=== PATIENT | female | born 1945 | race Caucasian/White ===

== ENCOUNTER 2018-12-05 08:30 | Inpatient (IN) | payer MEDICARE, OTHER ==
[~2018-12-05] VITALS: Ht 144.8 cm; Wt 86.1 kg
[2019-01-23] VITALS (25 sets, daily range): BP systolic 119–177; BP diastolic 65–87; PULSE 82–97; RESP 15–24; Ht 144.8 cm; Wt 86.1 kg
[2019-01-23] MEDS ORDERED: DEXAMETHASONE 4 MG/ML 1 ML INJ IV ONE (08:00)
[2019-01-23] MEDS ORDERED: ACETAMINOPHEN 500 MG TAB PO ONE (08:00)
[2019-01-23] MEDS ORDERED: TRANEXAMIC ACID 1GM/100ML(PMX) 100 ML PRE-OP X1 IVPB ONE (08:00)
[2019-01-23] MEDS ORDERED: TRANEXAMIC ACID 1GM/100ML(PMX) 100 ML INTRA-OP X1 IVPB ONE (08:00)
[2019-01-23] MEDS ORDERED: CEFAZOLIN 2 GM/50 ML (PMX) 50 ML IVPB ONE (08:00)
[2019-01-23] MEDS ORDERED: LACTATED RINGER'S 1,000 ML IV SCH (08:00)
[2019-01-23] MEDS ORDERED: SOD CHLORIDE 0.9% 1,000 ML IV SCH (11:00)
[2019-01-23] MEDS ORDERED: DICL100G37 TOP (11:23)
[2019-01-23] MEDS ORDERED: CALC60OI3 TOP (11:23)
[2019-01-23] MEDS ORDERED: OXYB5TAB22 PO ×2 (11:23→11:32)
[2019-01-23] MEDS ORDERED: FLUT9.9S NASAL (11:23)
[2019-01-23] MEDS ORDERED: ASPI-903 PO (11:23)
[2019-01-23] MEDS ORDERED: MELO7.5T39 PO (11:23)
[2019-01-23] MEDS ORDERED: BUME0.5T PO (11:23)
[2019-01-23] MEDS ORDERED: PREG50CA PO (11:32)
[2019-01-23] MEDS ORDERED: GABA300C16 PO (11:32)
--- NOTE | 2019-01-23 11:49 | HPN ---
Date/Time of Note Date/Time of Note DATE: 01/23/19 TIME: 11:49 Interval H&P Admission Note Pt. seen H&P reviewed: No system changes JESSY SIDDIQI Jan 23, 2019 11:49
[2019-01-23] MEDS ORDERED: TRIMETHOBENZAMIDE 100 MG/ML VIAL IM PRN (12:00)
[2019-01-23] MEDS ORDERED: DIPHENHYDRAMINE 50 MG INJ IV PRN (12:00)
[2019-01-23] MEDS ORDERED: IPRATROPIUM (NEB) 0.5 MG/2.5 ML AMP HHN PRN (12:00)
[2019-01-23] MEDS ORDERED: MIDAZOLAM 1 MG/ML 2 ML INJ IV PRN (12:00)
[2019-01-23] MEDS ORDERED: MEPERIDINE 25 MG INJ IV PRN (12:00)
[2019-01-23] MEDS ORDERED: EPHEDrine 25 MG/5 ML SYG IV PRN (12:00)
[2019-01-23] MEDS ORDERED: LABETALOL HCL 20MG INJ IV PRN (12:00)
[2019-01-23] MEDS ORDERED: ALBUTEROL 0.083% (NEB) 2.5 MG/3 ML AMP HHN PRN (12:00)
[2019-01-23] MEDS ORDERED: HYDROmorphONE 1 MG/5 ML IV SYRINGE IV PRN ×2 (12:00)
[2019-01-23] MEDS ORDERED: FENTAnyl 50 MCG/ML VIAL IV PRN ×2 (12:00)
[2019-01-23] MEDS ORDERED: hydrALAzine 20 MG INJ IV PRN ×2 (12:00→18:30)
[2019-01-23] MEDS ORDERED: OXYCODONE/ACETAMINOPHEN (5/325) TAB PO PRN ×2 (12:00)
[2019-01-23] MEDS ORDERED: ONDANSETRON 4 MG INJ IV PRN (12:00)
--- NOTE | 2019-01-23 12:00 | PREAC ---
Date/Time of Note Date/Time of Note DATE: 01/23/19 TIME: 11:58 Anesthesia Eval and Record Evaluation Time Pre-Procedure Interview DATE: 01/23/19 TIME: 11:58 Age 74 Sex female NPO: 8 hrs Preoperative diagnosis RIGHT SHOULDER OA Planned procedure RIGHT TSA Past Medical History Past Medical History: Includes Cardio: HTN, Dyslipidemia Endo: Diabetes Pulm: COPD Musculoskeletal: Rheumatoid arthritis GI: Morbid obesity Surgery & Anesthesia Issues No known issue Meds Anticoagulation: No Beta Lu within 24 hr: No Reason Beta Lu not given: Pt. not on B-Lu Reported Medications Pregabalin* (Lyrica*) 50 Mg Capsule, 50 MG PO TID, CAP 01/23/19 Gabapentin* (Gabapentin*) 300 Mg Capsule, 300 MG PO TID, #90 CAP 01/23/19 Oxybutynin Chloride* (Ditropan* XL) 5 Mg Tabsr, 5 MG PO DAILY, TAB.SA 01/23/19 Meloxicam (Mobic) 7.5 Mg Tablet, 7.5 MG PO DAILY, #30 TAB 01/23/19 Bumetanide* (Bumetanide*) 0.5 Mg Tablet, 0.5 MG PO DAILY, TAB 01/23/19 Oxybutynin Chloride* (Ditropan* XL) 5 Mg Tabsr, 5 MG PO DAILY, TAB.SA 01/23/19 Fluticasone Propionate (Flonase Allergy Relief) 9.9 Ml [place].susp, 1 SPRAY NASAL BID, #1 BOTTLE TO EACH NOSTRIL 01/23/19 Diclofenac Sodium* (Voltaren* Gel) 1% -100 Gm Gel, 2 GM TOP QID, #1 TUB 01/23/19 Calcipotriene* (Calcipotriene*) 0.005%-60 Gm Oint...g., 1 APPLIC TOP BID, TUB 01/23/19 Aspirin* (Aspirin* Chew) 81 Mg Tab.chew, 81 MG PO DAILY, TAB.CHEW 01/23/19 Current Medications Lactated Ringer's 1,000 ml @ 125 mls/hr Q8H IV ; Start 01/23/19 at 08:00; Stop 01/23/19 at 15:59 Sodium Chloride 1,000 ml @ 25 mls/hr Q24H IV Last administered on 01/23/19at 10:56; Admin Dose 25 MLS/HR; Start 01/23/19 at 11:00 Meds reviewed: Yes Allergies Uncoded Allergies: dye (Allergy, Severe, 01/23/19) Allergies Reviewed: Yes Labs/Studies Labs Reviewed: Reviewed by anesthesiologist test: N/A Pre-procedure Exam Last vitals Vital Signs Date Temp Pulse Resp B/P (MAP) Pulse Ox O2 O2 Flow FiO2 Time Delivery Rate 01/23/19 98.4 85 16 163/87 96 Room Air 11:02 (112) Airway: Adequate mouth opening, Adequate thyromental dist Mallampati: Mallampati II Teeth: Normal Lung: Normal Heart: Normal ASA Physical Status ASA physical status: 3 Emergency: None Planned Anesthetic General/MAC: TORY Nerve block: Brachial plexus (right) Planned Pain Management Single shot nerve block, Parenteral pain med Pre-operative Attestations Prior to commencing anesthesia and surgery, the patient was re-evaluated, there was verification of: *The patient's identity *The results of appropriate recent lab work and preoperative vital signs *The above evaluation not changing prior to induction *Anesthetic plan, risk benefits, alternative and complications discussed with patient/family; questions answered; patient/family understands, accepts and wishes to proceed. Cm Bains M.D. Jan 23, 2019 12:00
[2019-01-23] MEDS ORDERED: ROPIVACAINE 0.5 % 30 ML VIAL ONE (12:10)
[2019-01-23] MEDS ORDERED: DEXAMETHASONE 4 MG/ML 5 ML INJ ONE (12:10)
[2019-01-23] MEDS ORDERED: PROPOFOL 20 ML ONE (12:10)
[2019-01-23] MEDS ORDERED: NEOSTIGMINE 3 MG/3 ML SYRINGE ONE (12:10)
[2019-01-23] MEDS ORDERED: ONDANSETRON 4 MG INJ ONE (12:10)
[2019-01-23] MEDS ORDERED: ROCURONIUM 50 MG INJ ONE (12:10)
[2019-01-23] MEDS ORDERED: GLYCOPYRROLATE 0.4 MG INJ ONE (12:10)
[2019-01-23] MEDS ORDERED: SUGAMMADEX SODIUM 200 MG/2 ML VIAL IV ONE (12:10)
[2019-01-23] MEDS ORDERED: FENTAnyl 50 MCG/ML VIAL ONE ×2 (12:10)
[2019-01-23] MEDS ORDERED: MIDAZOLAM 1 MG/ML 2 ML INJ ONE (12:10)
[2019-01-23] MEDS ORDERED: CEFAZOLIN 1 GM INJ ONE (12:10)
[2019-01-23] MEDS ORDERED: TRANEXAMIC ACID 1 GM/100 ML (PMX) ONE (12:10)
[2019-01-23] MEDS ORDERED: ACETAMINOPHEN 1000MG/100ML IV 100 ML IVPB ONE (12:30)
[2019-01-23] MEDS ORDERED: BACITRACIN 50000 UNITS INJ ONE (12:57)
[2019-01-23] MEDS ORDERED: POLYMYXIN B 500000 UNIT INJ ONE (12:58)
[2019-01-23] MEDS ORDERED: GELATIN SIZE 100 SPONGE ONE (14:44)
[2019-01-23] MEDS ORDERED: THROMBIN 5000 UNIT VIAL ONE (14:45)
--- NOTE | 2019-01-23 15:49 | SIPON ---
Date/Time of Note Date/Time of Note DATE: 01/23/19 TIME: 15:48 Operative Report Preoperative Diagnosis right shoulder DJD Postoperative Diagnosis same Operation/Procedure Performed Right TSA Surgeon see signature line speech correction assistant Heather RILEY Anesthesia: general Estimated blood loss: 250 - 300 ml's Transfusion Required none Specimen bone Grafts/Implants DePuy shoulder 8 stem, 40 glenoid, 40 head Complications none JESSY SIDDIQI Jan 23, 2019 15:49
[2019-01-23] MEDS ORDERED: MAGNESIUM HYDROXIDE 30ML CUP PO PRN (16:00)
--- NOTE | 2019-01-23 16:19 | HP ---
Date/Time of Note Date/Time of Note DATE: 01/23/19 TIME: 16:18 Assessment/Plan VTE Prophylaxis SCD applied (from Nsg): Yes Pharmacological prophylaxis: NA/contraindicated Pharm contraindication: surgical contra Lines/Catheters IV Catheter Type (from Nrsg): Peripheral IV Assessment/Plan Assessment/Plan -Right shoulder degenerative joint disease, status post right total shoulder replacement by Dr. Castro. -Hypertension -Hyperlipidemia -Diabetes -COPD -Osteoarthritis -Psoriasis Further recommendations based on clinical course. Plan of care discussed with Dr. Teague. Results 24hrs Laboratory Tests Test 01/23/19 10:36 Bedside Glucose 82 HPI/ROS Admit Date/Time Admit Date/Time Jan 23, 2019 at 09:24 Hx of Present Illness The patient is 74-year-old female with history of hypertension, hyperlipidemia, COPD, diabetes mellitus type 2, psoriasis. Patient was evaluated by Dr. Castro for right shoulder degenerative joint disease. Patient was brought to the hospital and underwent right total shoulder replacement. Patient's complaints of the left upper extremity swelling and numbness. Patient denies any nausea and vomiting. Patient postoperative pale is well controlled. Patient will be admitted for further evaluation and management. ROS 12 point review of system is negative except for what mentioned in HPI PMH/Family/Social Past Medical History Medical History: diabetes, high cholesterol, hypertension, other (COPD, psoriasis, osteoarthritis) Medications Current Medications Sodium Chloride 1,000 ml @ 25 mls/hr Q24H IV Last administered on 01/23/19at 10:56; Admin Dose 25 MLS/HR; Start 01/23/19 at 11:00 Hydromorphone HCl (Dilaudid) 0.2 mg PACU PRN IV MILD PAIN 1-3; Start 01/23/19 at 12:00; Stop 01/23/19 at 18:30 Hydromorphone HCl (Dilaudid) 0.4 mg PACU PRN IV MOD PAIN 4-6; Start 01/23/19 at 12:00; Stop 01/23/19 at 18:30 Hydromorphone HCl (Dilaudid) 0.6 mg PACU PRN IV SEVERE PAIN 7-10; Start 01/23/19 at 12:00; Stop 01/23/19 at 18:30 Fentanyl (Sublimaze) 25 mcg PACU ORDER PRN IV MILD PAIN 1-3; Start 01/23/19 at 12:00; Stop 01/23/19 at 18:30 Fentanyl (Sublimaze) 50 mcg PACU ORDER PRN IV MOD PAIN 4-6; Start 01/23/19 at 12:00; Stop 01/23/19 at 18:30 Fentanyl (Sublimaze) 75 mcg PACU ORDER PRN IV SEVERE PAIN 7-10; Start 01/23/19 at 12:00; Stop 01/23/19 at 18:30 Oxycodone/ Acetaminophen (Percocet (5/ 325)) 1 tab PACU ORDER PRN PO .PAIN 1-5; Start 01/23/19 at 12:00; Stop 01/23/19 at 18:30 Oxycodone/ Acetaminophen (Percocet (5/ 325)) 2 tab PACU ORDER PRN PO .PAIN 6-10; Start 01/23/19 at 12:00; Stop 01/23/19 at 18:30 Ondansetron HCl (Zofran Inj) 4 mg PACU ORDER PRN IV NAUSEA/VOMITING; Start 01/23/19 at 12:00; Stop 01/23/19 at 18:30 Trimethobenzamide HCl (Tigan) 200 mg PACU ORDER PRN IM NAUSEA/VOMITING; Start 01/23/19 at 12:00; Stop 01/23/19 at 18:30 Labetalol HCl (Labetalol) 5 mg PACU ORDER PRN IV HIGH BLOOD PRESSURE; Start 01/23/19 at 12:00; Stop 01/23/19 at 18:30 Hydralazine HCl (Apresoline) 5 mg PACU ORDER PRN IV HIGH BLOOD PRESSURE; Start 01/23/19 at 12:00; Stop 01/23/19 at 18:30 Ephedrine Sulfate 5 mg PACU ORDER PRN IV BLOOD PRESSURE SUPPORT; Start 01/23/19 at 12:00; Stop 01/23/19 at 18:30 Albuterol (Proventil 0.083% (Neb)) 2.5 mg PACU ORDER PRN HHN .WHEEZING; Start 01/23/19 at 12:00; Stop 01/23/19 at 18:30 Ipratropium Pearl (Atrovent 0.02% (Neb)) 0.5 mg PACU ORDER PRN HHN .WHEEZING; Start 01/23/19 at 12:00; Stop 01/23/19 at 18:30 Meperidine HCl (Demerol) 25 mg PACU ORDER PRN IV .RIGORS; Start 01/23/19 at 12:00; Stop 01/23/19 at 18:30 Diphenhydramine HCl (Benadryl) 25 mg PACU ORDER PRN IV .PRURITUS; Start 01/23/19 at 12:00; Stop 01/23/19 at 18:30 Midazolam HCl (Versed) 0.5 mg PACU ORDER PRN IV .ANXIETY; Start 01/23/19 at 12:00; Stop 01/23/19 at 18:30 Cefazolin Sodium 50 ml @ 100 mls/hr Q8H IVPB ; Start 01/23/19 at 16:00; Stop 01/24/19 at 08:29 Magnesium Hydroxide (Milk Of Mag) 30 ml BID PRN PO CONSTIPATION; Start 01/23/19 at 16:00 Lactated Ringer's 1,000 ml @ 100 mls/hr Q10H IV ; Start 01/23/19 at 15:39 Aspirin (Aspirin) 81 mg DAILY PO ; Start 01/24/19 at 09:00 Gabapentin (Neurontin) 100 mg TID NGT ; Start 01/23/19 at 21:00 Oxycodone HCl (Roxicodone) 5 mg Q4H PRN PO MODERATE PAIN LEVEL 4-6; Start 01/23/19 at 16:00 Oxycodone HCl (Roxicodone) 10 mg Q4H PRN PO MODERATE PAIN LEVEL 4-6; Start 01/23/19 at 16:00 Uncoded Allergies: dye (Allergy, Severe, 01/23/19) Past Surgical History Past Surgical Hx: other (Status post hysterectomy more than 30 years ago, status post bilateral knee replacement) Social History Alcohol Use: none Smoking Status: Current every day smoker (Patient smokes hookah) Drug Use: none Exam/Review of Systems Vital Signs Vitals Vital Signs Date Temp Pulse Resp B/P (MAP) Pulse Ox O2 O2 Flow FiO2 Time Delivery Rate 01/23/19 98.4 85 16 163/87 96 Room Air 11:02 (112) Intake and Output 01/22/19 01/22/19 01/23/19 1515:00 23:00 07:00 IntakeIntake Total 0 ml BalanceBalance 0 ml Exam Constitutional: alert, oriented Head: normocephalic Neck: supple Respiratory: clear to auscultation Cardiovascular: regular rate and rhythm Gastrointestinal: soft, non-tender Musculoskeletal: nl extremities to inspection Extremities: normal pulses, edema (Bilateral upper extremities) Neurological: nl mental status DONOVAN FERNANDO Jan 23, 2019 16:19
--- NOTE | 2019-01-23 16:19 | PAC ---
Date/Time of Note Date/Time of Note DATE: 01/23/19 TIME: 16:18 Post-Anesthesia Notes Post-Anesthesia Note Last documented vital signs Vital Signs Date Temp Pulse Resp B/P (MAP) Pulse Ox O2 O2 Flow FiO2 Time Delivery Rate 01/23/19 98.4 85 16 163/87 96 Room Air 11:02 (112) Activity: WNL Respiratory function: WNL Cardiovascular function: WNL Mental status: Baseline Pain reasonably controlled: Yes Hydration appropriate: Yes Nausea/Vomiting absent: Yes Cm Bains M.D. Jan 23, 2019 16:19
[2019-01-23] MEDS: LACTATED RINGER'S 1,000 ML IV SCH ×2 (16:49→23:32)
[2019-01-23] MEDS: CEFAZOLIN 1 GM/50 ML (PMX) 50 ML IVPB SCH ×2 (16:52→23:32)
[2019-01-23] MEDS: FENTAnyl 50 MCG/ML VIAL IV PRN ×2 (16:54→17:11)
[2019-01-23] MEDS: HYDROmorphONE 1 MG/5 ML IV SYRINGE IV PRN ×2 (16:55→17:10)
[2019-01-23] MEDS: oxyCODONE 5 MG TAB PO PRN ×2 (18:42→22:44)
[2019-01-23] MEDS ORDERED: GLUCOSE GEL 15 GRAM TUBE BUCCAL PRN (19:30)
[2019-01-23] MEDS ORDERED: GLUCOSE GEL 15 GRAM TUBE PO PRN ×2 (19:30)
[2019-01-23] MEDS ORDERED: GLUCAGON 1 MG INJ IM PRN (19:30)
[2019-01-23] MEDS ORDERED: DEXTROSE 50% 50 ML SYRINGE IV PRN ×2 (19:30)
[2019-01-23] MEDS: GABAPENTIN 100 MG CAP NGT SCH (20:14)
[2019-01-23] MEDS: GABAPENTIN 300 MG CAP PO SCH (20:35)
[2019-01-23] MEDS: BUMETANIDE 0.5 MG TAB PO SCH (20:35)
[2019-01-23] MEDS: PREGABALIN 50 MG CAP PO SCH (20:35)
[2019-01-23] MEDS: FLUTICASONE 0.05% 16 GM NAS SPRAY NASAL SCH (20:52)
[2019-01-23] MEDS: INSULIN ASPART [NOVOLOG] 3 ML PEN SC SCH (20:55)
[2019-01-24] VITALS: BP 141/65; PULSE 95; RESP 20
[2019-01-24] MEDS: ACCU-CHEK XX SCH (02:50)
[2019-01-24] MEDS: oxyCODONE 5 MG TAB PO PRN ×3 (06:59→20:08)
[2019-01-24] MEDS ORDERED: AL HYDROX/MG HYDROX/SIMETH 30 ML CUP PO PRN (07:30)
[2019-01-24] MEDS ORDERED: PANTOPRAZOLE (EC) 40 MG TAB PO ONE (07:30)
[2019-01-24 07:33] VITALS: BP 139/65; PULSE 88; RESP 20
[2019-01-24] MEDS: INSULIN ASPART [NOVOLOG] 3 ML PEN SC SCH ×4 (08:48→20:23)
[2019-01-24] MEDS: FLUTICASONE 0.05% 16 GM NAS SPRAY NASAL SCH ×2 (08:50→21:00)
--- NOTE | 2019-01-24 08:50 | PN ---
Date/Time of Note Date/Time of Note DATE: 01/24/19 TIME: 08:49 Assessment/Plan VTE Prophylaxis Risk score (from Nsg)>0 risk: 8 SCD applied (from Nsg): Yes Lines/Catheters IV Catheter Type (from Nrsg): Peripheral IV Urinary Cath still in place: No Assessment/Plan Assessment/Plan -Right shoulder degenerative joint disease, status post right total shoulder replacement by Dr. Castro. -Hypertension -Hyperlipidemia -Diabetes -COPD -Osteoarthritis -Psoriasis Further recommendations based on clinical course. Plan of care discussed with Dr. Teague. Result Diagram: 01/24/199 01/24/19 0426 Results 24hrs Laboratory Tests Test 01/23/19 10:36 01/23/19 16:17 01/23/19 20:02 01/23/19 20:53 Bedside Glucose 82 127 210 240 H Test 01/24/19 01:41 01/24/19 04:26 01/24/19 04:29 01/24/19 08:16 Bedside Glucose 240 H Sodium Level 140 Potassium Level 4.3 Chloride Level 105 Carbon Dioxide 27 Level Anion Gap 8 Blood Urea 26 H Nitrogen Creatinine 0.65 Est Glomerular Filtrat Rate mL/min Glucose Level 205 Calcium Level 8.3 L Hemoglobin 10.6 L Hematocrit 32.1 L Lab Scanned Report REFERENCE LAB Test 01/24/19 08:40 Bedside Glucose 187 Exam/Review of Systems Exam Vitals Vital Signs Date Temp Pulse Resp B/P (MAP) Pulse Ox O2 O2 Flow FiO2 Time Delivery Rate 01/24/19 98.7 88 20 139/65 95 Nasal 3.0 07:33 (89) Cannula Intake and Output 01/23/19 01/23/19 01/24/19 1515:00 23:00 07:00 IntakeIntake Total 200 ml 1600 ml 1500 ml OutputOutput Total 50 ml 200 ml BalanceBalance 200 ml 1550 ml 1300 ml Results Results 24hrs Laboratory Tests Test 01/23/19 10:36 01/23/19 16:17 01/23/19 20:02 01/23/19 20:53 Bedside Glucose 82 127 210 240 H Test 01/24/19 01:41 01/24/19 04:26 01/24/19 04:29 01/24/19 08:16 Bedside Glucose 240 H Sodium Level 140 Potassium Level 4.3 Chloride Level 105 Carbon Dioxide 27 Level Anion Gap 8 Blood Urea 26 H Nitrogen Creatinine 0.65 Est Glomerular Filtrat Rate mL/min Glucose Level 205 Calcium Level 8.3 L Hemoglobin 10.6 L Hematocrit 32.1 L Lab Scanned Report REFERENCE LAB Test 01/24/19 08:40 Bedside Glucose 187 Medications Medication Current Medications Sodium Chloride 1,000 ml @ 25 mls/hr Q24H IV Last administered on 01/23/19at 10:56; Admin Dose 25 MLS/HR; Start 01/23/19 at 11:00 Magnesium Hydroxide (Milk Of Mag) 30 ml BID PRN PO CONSTIPATION; Start 01/23/19 at 16:00 Lactated Ringer's 1,000 ml @ 100 mls/hr Q10H IV Last administered on 01/23/19at 23:32; Admin Dose 100 MLS/HR; Start 01/23/19 at 15:39 Aspirin (Aspirin) 81 mg DAILY PO ; Start 01/24/19 at 09:00 Gabapentin (Neurontin) 100 mg TID NGT ; Start 01/23/19 at 21:00 Oxycodone HCl (Roxicodone) 5 mg Q4H PRN PO MODERATE PAIN LEVEL 4-6 Last administered on 01/23/19at 18:42; Admin Dose 5 MG; Start 01/23/19 at 16:00 Oxycodone HCl (Roxicodone) 10 mg Q4H PRN PO MODERATE PAIN LEVEL 4-6 Last administered on 01/24/19at 06:59; Admin Dose 10 MG; Start 01/23/19 at 16:00 Bumetanide (Bumex) 0.5 mg DAILY PO Last administered on 01/23/19at 20:35; Admin Dose 0.5 MG; Start 01/23/19 at 18:00 Fluticasone Propionate (Flonase 0.05% Nasal) 1 spray BID NASAL ; Start 01/23/19 at 21:00 Gabapentin (Neurontin) 300 mg TID PO Last administered on 01/23/19at 20:35; Admin Dose 300 MG; Start 01/23/19 at 21:00 Meloxicam (Mobic) 7.5 mg DAILY PO ; Start 01/24/19 at 09:00 Oxybutynin Chloride (Ditropan Xl) 5 mg DAILY PO ; Start 01/24/19 at 09:00 Pregabalin (Lyrica) 50 mg TID PO Last administered on 01/23/19at 20:35; Admin Dose 50 MG; Start 01/23/19 at 21:00 Hydralazine HCl (Apresoline) 10 mg Q6H PRN IV SBP>170 Last administered on 01/23/19at 19:59; Admin Dose 10 MG; Start 01/23/19 at 18:30 Diagnostic Test (Pha) (Accu-Chek) 1 ea 02 XX Last administered on 01/24/19at 02:50; Admin Dose 1 EA; Start 01/24/19 at 02:00 Insulin Aspart (Novolog Insulin Pen) NOVOLOG *MILD* ALGORITHM WITH MEALS BEDTIME SC Last administered on 01/23/19at 20:55; Admin Dose 2 UNIT; Start 01/23/19 at 21:00 Miscellaneous Information 1 ea NOTE XX ; Start 01/23/19 at 19:30 Glucose (Glutose) 15 gm Q15M PRN PO DECREASED GLUCOSE; Start 01/23/19 at 19:30 Glucose (Glutose) 22.5 gm Q15M PRN PO DECREASED GLUCOSE; Start 01/23/19 at 19:30 Dextrose (D50w Syringe) 25 ml Q15M PRN IV DECREASED GLUCOSE; Start 01/23/19 at 19:30 Dextrose (D50w Syringe) 50 ml Q15M PRN IV DECREASED GLUCOSE; Start 01/23/19 at 19:30 Glucagon (Glucagen) 1 mg Q15M PRN IM DECREASED GLUCOSE; Start 01/23/19 at 19:30 Glucose (Glutose) 15 gm Q15M PRN BUCCAL DECREASED GLUCOSE; Start 01/23/19 at 19:30 Al Hydrox/Mg Hydrox/Simethicone (Mag-Al Plus) 30 ml Q6H PRN PO INDIGESTION; Start 01/24/19 at 07:30 WILLIAMS YOUNG Jan 24, 2019 08:50
[2019-01-24] MEDS: CEFAZOLIN 1 GM/50 ML (PMX) 50 ML IVPB SCH (08:51)
[2019-01-24] MEDS: OXYBUTYNIN (XL) 5 MG TAB PO SCH (08:51)
[2019-01-24] MEDS: PREGABALIN 50 MG CAP PO SCH ×3 (08:51→20:08)
[2019-01-24] MEDS: MELOXICAM 7.5 MG TAB PO SCH (08:51)
[2019-01-24] MEDS: GABAPENTIN 300 MG CAP PO SCH ×3 (08:52→20:07)
[2019-01-24] MEDS: ASPIRIN 81 MG TAB PO SCH (08:52)
[2019-01-24] MEDS: GABAPENTIN 100 MG CAP NGT SCH ×3 (08:53→21:00)
[2019-01-24] MEDS: BUMETANIDE 0.5 MG TAB PO SCH (08:56)
[2019-01-24] MEDS ORDERED: ASPIRIN 81 MG TAB PO SCH (09:00)
[2019-01-24] MEDS ORDERED: LANT3I SC (12:07)
[2019-01-24] MEDS ORDERED: MTF1000T PO (12:07)
[2019-01-24 15:34] VITALS: BP 132/64; PULSE 84; RESP 18
[2019-01-24 19:20] VITALS: BP 136/72; PULSE 89; RESP 20
[2019-01-24] MEDS: INSULIN GLARGINE [LANTus] (100 UNITS/ML) SYG SC SCH (20:21)
[2019-01-25] MEDS: ACCU-CHEK XX SCH (02:00)
[2019-01-25] MEDS: oxyCODONE 5 MG TAB PO PRN ×2 (02:27→06:44)
[2019-01-25 02:50] VITALS: BP 136/60; PULSE 97; RESP 20
[2019-01-25 07:10] VITALS: BP 136/92; PULSE 105; RESP 18
[2019-01-25] MEDS: FLUTICASONE 0.05% 16 GM NAS SPRAY NASAL SCH ×2 (08:37→20:40)
[2019-01-25] MEDS: INSULIN ASPART [NOVOLOG] 3 ML PEN SC SCH ×4 (08:37→20:42)
[2019-01-25] MEDS: BUMETANIDE 0.5 MG TAB PO SCH (09:35)
[2019-01-25] MEDS: PREGABALIN 50 MG CAP PO SCH ×3 (09:35→20:37)
[2019-01-25] MEDS: OXYBUTYNIN (XL) 5 MG TAB PO SCH (09:35)
[2019-01-25] MEDS: GABAPENTIN 300 MG CAP PO SCH ×3 (09:36→20:37)
[2019-01-25] MEDS: MELOXICAM 7.5 MG TAB PO SCH (09:36)
[2019-01-25] MEDS: ASPIRIN 81 MG TAB PO SCH (09:37)
--- NOTE | 2019-01-25 10:52 | PN ---
Date/Time of Note Date/Time of Note DATE: 01/25/19 TIME: 10:51 Assessment/Plan VTE Prophylaxis Risk score (from Ns)>0 risk: 7 SCD applied (from Ns): Yes Pharmacological prophylaxis: LMWH Lines/Catheters IV Catheter Type (from Nrs): Saline Lock Urinary Cath still in place: No Assessment/Plan Hospital Course -Right shoulder degenerative joint disease, status post right total shoulder replacement by Dr. Castro. -Hypertension -Hyperlipidemia -Diabetes -COPD -Osteoarthritis -Psoriasis Result Diagram: 01/25/19 0431 01/25/19 0431 Results 24hrs Laboratory Tests Test 01/24/19 12:56 01/24/19 17:30 01/24/19 20:22 01/25/19 02:13 Bedside Glucose 291 H 185 327 H 228 H Test 01/25/19 04:31 01/25/19 08:34 White Blood Count 7.9 Red Blood Count 3.49 L Hemoglobin 9.7 L Hematocrit 30.6 L Mean Corpuscular 87.7 Volume Mean Corpuscular 27.8 L Hemoglobin Mean Corpuscular 31.7 L Hemoglobin Concent Red Cell 14.8 H Distribution Width Platelet Count 274 Mean Platelet Volume 11.1 H Immature 0.500 H Granulocytes % Neutrophils % 75.2 Lymphocytes % 15.3 Monocytes % 8.0 Eosinophils % 0.9 Basophils % 0.1 Nucleated Red Blood 0.0 Cells % Immature 0.040 H Granulocytes # Neutrophils # 6.0 Lymphocytes # 1.2 Monocytes # 0.6 Eosinophils # 0.1 Basophils # 0.0 Nucleated Red Blood 0.0 Cells # Sodium Level 141 Potassium Level 3.9 Chloride Level 104 Carbon Dioxide Level 29 Anion Gap 8 Blood Urea Nitrogen 24 H Creatinine 0.61 Est Glomerular Filtrat Rate mL/min Glucose Level 184 Calcium Level 8.4 Bedside Glucose 153 Subjective 24 Hr Interval Summary Free Text/Dictation Patient complains of severe pain in right shoulder Exam/Review of Systems Exam Vitals Vital Signs Date Temp Pulse Resp B/P (MAP) Pulse Ox O2 O2 Flow FiO2 Time Delivery Rate 01/25/19 98.6 105 18 136/92 92 07:10 (107) 01/24/19 Nasal 3.0 15:34 Cannula Intake and Output 01/24/19 01/24/19 01/25/19 1515:00 23:00 07:00 IntakeIntake Total 1530 ml 200 ml 250 ml BalanceBalance 1530 ml 200 ml 250 ml Constitutional: well developed Head: normocephalic, atraumatic Neck: supple Respiratory: clear to auscultation Cardiovascular: regular rate and rhythm Gastrointestinal: soft, non-tender Extremities: normal pulses Results Results 24hrs Laboratory Tests Test 01/24/19 12:56 01/24/19 17:30 01/24/19 20:22 01/25/19 02:13 Bedside Glucose 291 H 185 327 H 228 H Test 01/25/19 04:31 01/25/19 08:34 White Blood Count 7.9 Red Blood Count 3.49 L Hemoglobin 9.7 L Hematocrit 30.6 L Mean Corpuscular 87.7 Volume Mean Corpuscular 27.8 L Hemoglobin Mean Corpuscular 31.7 L Hemoglobin Concent Red Cell 14.8 H Distribution Width Platelet Count 274 Mean Platelet Volume 11.1 H Immature 0.500 H Granulocytes % Neutrophils % 75.2 Lymphocytes % 15.3 Monocytes % 8.0 Eosinophils % 0.9 Basophils % 0.1 Nucleated Red Blood 0.0 Cells % Immature 0.040 H Granulocytes # Neutrophils # 6.0 Lymphocytes # 1.2 Monocytes # 0.6 Eosinophils # 0.1 Basophils # 0.0 Nucleated Red Blood 0.0 Cells # Sodium Level 141 Potassium Level 3.9 Chloride Level 104 Carbon Dioxide Level 29 Anion Gap 8 Blood Urea Nitrogen 24 H Creatinine 0.61 Est Glomerular Filtrat Rate mL/min Glucose Level 184 Calcium Level 8.4 Bedside Glucose 153 Medications Medication Current Medications Magnesium Hydroxide (Milk Of Mag) 30 ml BID PRN PO CONSTIPATION; Start 01/23/19 at 16:00 Aspirin (Aspirin) 81 mg DAILY PO Last administered on 01/25/19at 09:37; Admin Dose 81 MG; Start 01/24/19 at 09:00 Gabapentin (Neurontin) 100 mg TID NGT ; Start 01/23/19 at 21:00 Oxycodone HCl (Roxicodone) 5 mg Q4H PRN PO MODERATE PAIN LEVEL 4-6 Last administered on 01/23/19at 18:42; Admin Dose 5 MG; Start 01/23/19 at 16:00 Oxycodone HCl (Roxicodone) 10 mg Q4H PRN PO MODERATE PAIN LEVEL 4-6 Last administered on 01/25/19at 06:44; Admin Dose 10 MG; Start 01/23/19 at 16:00 Bumetanide (Bumex) 0.5 mg DAILY PO Last administered on 01/25/19 09:35; Admin Dose 0.5 MG; Start 01/23/19 at 18:00 Fluticasone Propionate (Flonase 0.05% Nasal) 1 spray BID NASAL Last administered on 01/25/19 08:37; Admin Dose 1 SPRAY; Start 01/23/19 at 21:00 Gabapentin (Neurontin) 300 mg TID PO Last administered on 01/25/19 09:36; Admin Dose 300 MG; Start 01/23/19 at 21:00 Meloxicam (Mobic) 7.5 mg DAILY PO Last administered on 01/25/19 09:36; Admin Dose 7.5 MG; Start 01/24/19 at 09:00 Oxybutynin Chloride (Ditropan Xl) 5 mg DAILY PO Last administered on 01/25/19 09:35; Admin Dose 5 MG; Start 01/24/19 at 09:00 Pregabalin (Lyrica) 50 mg TID PO Last administered on 01/25/19 09:35; Admin Dose 50 MG; Start 01/23/19 at 21:00 Hydralazine HCl (Apresoline) 10 mg Q6H PRN IV SBP>170 Last administered on 01/23/19 19:59; Admin Dose 10 MG; Start 01/23/19 at 18:30 Diagnostic Test (Pha) (Accu-Chek) 1 ea 02 XX Last administered on 01/24/19at 02:50; Admin Dose 1 EA; Start 01/24/19 at 02:00 Insulin Aspart (Novolog Insulin Pen) NOVOLOG *MILD* ALGORITHM WITH MEALS BEDTIME SC Last administered on 01/25/19 08:37; Admin Dose 1 UNIT; Start 01/23/19 at 21:00 Miscellaneous Information 1 ea NOTE XX ; Start 01/23/19 at 19:30 Glucose (Glutose) 15 gm Q15M PRN PO DECREASED GLUCOSE; Start 01/23/19 at 19:30 Glucose (Glutose) 22.5 gm Q15M PRN PO DECREASED GLUCOSE; Start 01/23/19 at 19:30 Dextrose (D50w Syringe) 25 ml Q15M PRN IV DECREASED GLUCOSE; Start 01/23/19 at 19:30 Dextrose (D50w Syringe) 50 ml Q15M PRN IV DECREASED GLUCOSE; Start 01/23/19 at 19:30 Glucagon (Glucagen) 1 mg Q15M PRN IM DECREASED GLUCOSE; Start 01/23/19 at 19:30 Glucose (Glutose) 15 gm Q15M PRN BUCCAL DECREASED GLUCOSE; Start 01/23/19 at 19:30 Al Hydrox/Mg Hydrox/Simethicone (Mag-Al Plus) 30 ml Q6H PRN PO INDIGESTION; Start 01/24/19 at 07:30 Insulin Glargine (Lantus) 10 units DAILY@2000 SC Last administered on 01/24/19at 20:21; Admin Dose 10 UNITS; Start 01/24/19 at 20:00 YAHAIRA KELLEY Jan 25, 2019 10:52
[2019-01-25] MEDS: KETOROLAC 15 MG INJ IV PRN ×2 (11:20→17:36)
[2019-01-25] MEDS ORDERED: oxyCODONE 5 MG TAB PO PRN (12:00)
--- NOTE | 2019-01-25 14:18 | PDOCDIS ---
Discharge Instructions DIAGNOSIS Discharge Diagnosis Right total shoulder replacement CONDITION [id number] Patient Condition: Misho1y Good HOME CARE INSTRUCTIONS: [id number] Diet Instructions: [id number] Regular ACTIVITY: [id number] Activity Restrictions: [id number] Slowly Increase Activity Do not Drive Avoid Heavy Housework Keep Limb Elevated [id number] Bathing Restrictions: [id number] Shower FOLLOW UP/APPOINTMENTS Follow-up Plan 2 weeks JESSY SIDDIQI Jan 25, 2019 14:18
--- NOTE | 2019-01-25 14:20 | DS ---
Date/Time of Note Date/Time of Note DATE: 01/25/19 TIME: 14:19 Discharge Summary Admission/Discharge Info Admit Date/Time Jan 23, 2019 at 09:24 Discharge Date/Time January 25, 2019, 4 PM Discharge Diagnosis Right total shoulder replacement Patient Condition: Good Hospital Course Patient underwent right total shoulder replacement on January 23, 2019 for advanced arthritis of her right shoulder. The patient progressed slowly with pain control. She continues to complain of multiple joint pains, stiffness of her hands. She is able to ambulate with physical therapy. She is cleared for discharge home with continued physical therapy at home. She will need a rheumatology consult in the near future Home Meds Reported Medications Metformin* (Glucophage*) 1,000 Mg Tablet, 1000 MG PO BID, #60 TAB 01/24/19 Insulin Glargine* (Lantus*) 100 Unit/Ml Soln, 1 UNIT SC DAILY, #1 VIAL 01/24/19 Insulin Glargine* (Lantus*) 100 Unit/Ml Soln, 1 UNIT SC DAILY, #1 VIAL 01/24/19 Pregabalin* (Lyrica*) 50 Mg Capsule, 50 MG PO TID, CAP 01/23/19 Gabapentin* (Gabapentin*) 300 Mg Capsule, 300 MG PO TID, #90 CAP 01/23/19 Oxybutynin Chloride* (Ditropan* XL) 5 Mg Tabsr, 5 MG PO DAILY, TAB.SA 01/23/19 Meloxicam (Mobic) 7.5 Mg Tablet, 7.5 MG PO DAILY, #30 TAB 01/23/19 Bumetanide* (Bumetanide*) 0.5 Mg Tablet, 0.5 MG PO DAILY, TAB 01/23/19 Oxybutynin Chloride* (Ditropan* XL) 5 Mg Tabsr, 5 MG PO DAILY, TAB.SA 01/23/19 Fluticasone Propionate (Flonase Allergy Relief) 9.9 Ml [place].susp, 1 SPRAY NASAL BID, #1 BOTTLE TO EACH NOSTRIL 01/23/19 Diclofenac Sodium* (Voltaren* Gel) 1% -100 Gm Gel, 2 GM TOP QID, #1 TUB 01/23/19 Calcipotriene* (Calcipotriene*) 0.005%-60 Gm Oint...g., 1 APPLIC TOP BID, TUB 01/23/19 Aspirin* (Aspirin* Chew) 81 Mg Tab.chew, 81 MG PO DAILY, TAB.CHEW 01/23/19 Follow-up Plan 2 weeks Primary Care Provider Not On Staff Doctor Time spent on discharge: < 30 minutes Pending Labs Laboratory Tests Test 01/24/19 17:30 01/24/19 20:22 01/25/19 02:13 01/25/19 04:31 Bedside 185 327 228 Glucose mg/dL (70-220) mg/dL (70-220) mg/dL (70-220) White Blood 7.9 Count 10^3/ul (4.8-1 0.8) Red Blood 3.49 Count 10^6/ul (4.20- 5.40) Hemoglobin 9.7 g/dl (12.0-16. 0) Hematocrit 30.6 % (37.0-47.0) Mean 87.7 Corpuscular fl (82.0-101.0 Volume ) Mean 27.8 Corpuscular pg (29.0-33.0) Hemoglobin Mean 31.7 Corpuscular g/dl (32.0-37. Hemoglobin Conc 0) ent Red Cell 14.8 Distribution % (11.5-14.5) Width Platelet Count 274 10^3/UL (140-4 15) Mean Platelet 11.1 Volume fl (7.4-10.4) Immature 0.500 Granulocytes % % (0.001-0.429 ) Neutrophils % 75.2 % (39.0-77.0) Lymphocytes % 15.3 % (15.0-51.0) Monocytes % 8.0 % (0.0-11.0) Eosinophils % 0.9 % (0.0-7.0) Basophils % 0.1 % (0.0-2.0) Nucleated Red 0.0 Blood Cells % /100WBC (0.0-0 .0) Immature 0.040 Granulocytes # 10^3/ul (0.0-0 .031) Neutrophils # 6.0 10^3/ul (1.6-7 .5) Lymphocytes # 1.2 10^3/ul (0.8-2 .9) Monocytes # 0.6 10^3/ul (0.3-0 .9) Eosinophils # 0.1 10^3/ul (0.0-0 .5) Basophils # 0.0 10^3/ul (0.0-0 .1) Nucleated Red 0.0 Blood Cells # 10^3/ul (0.0-0 .0) Sodium Level 141 mmol/L (135-14 4) Potassium 3.9 Level mmol/L (3.5-5. 1) Chloride Level 104 mmol/L (97-110 ) Carbon Dioxide 29 Level mmol/L (21-31) Anion Gap 8 (5-13) Blood Urea 24 Nitrogen mg/dl (7-20) Creatinine 0.61 mg/dl (0.44-1. 00) Est Glomerular mL/min (>60) Filtrat Rate mL/min Glucose Level 184 mg/dl (70-220) Calcium Level 8.4 mg/dl (8.4-10. 2) Test 01/25/19 08:34 01/25/19 12:47 Bedside 153 273 Glucose mg/dL (70-220) mg/dL (70-220) JESSY SIDDIQI Jan 25, 2019 14:20
[2019-01-25 16:39] VITALS: BP 145/67; PULSE 99; RESP 18
[2019-01-25 17:42] VITALS: RESP 24
[2019-01-25 19:58] VITALS: BP 141/68; PULSE 89; RESP 20
[2019-01-25] MEDS: INSULIN GLARGINE [LANTus] (100 UNITS/ML) SYG SC SCH (20:43)
[2019-01-26 01:47] VITALS: BP 138/74; PULSE 88; RESP 18
[2019-01-26] MEDS: ACCU-CHEK XX SCH (02:00)
[2019-01-26] MEDS: KETOROLAC 15 MG INJ IV PRN (05:26)
[2019-01-26 08:41] VITALS: BP 128/73; PULSE 91; RESP 18
[2019-01-26] MEDS: GABAPENTIN 300 MG CAP PO SCH ×2 (08:57→13:09)
[2019-01-26] MEDS: BUMETANIDE 0.5 MG TAB PO SCH (08:57)
[2019-01-26] MEDS: OXYBUTYNIN (XL) 5 MG TAB PO SCH (08:57)
[2019-01-26] MEDS: MELOXICAM 7.5 MG TAB PO SCH (08:57)
[2019-01-26] MEDS: ASPIRIN 81 MG TAB PO SCH (08:57)
[2019-01-26] MEDS: PREGABALIN 50 MG CAP PO SCH ×2 (08:57→13:12)
[2019-01-26] MEDS: FLUTICASONE 0.05% 16 GM NAS SPRAY NASAL SCH (08:58)
[2019-01-26] MEDS ORDERED: PANTOPRAZOLE (EC) 40 MG TAB PO SCH ×2 (09:00)
[2019-01-26] MEDS: INSULIN ASPART [NOVOLOG] 3 ML PEN SC SCH ×2 (09:04→13:09)
[2019-01-26] MEDS: oxyCODONE 5 MG TAB PO PRN (10:52)
--- NOTE | 2019-01-26 11:44 | DS ---
Date/Time of Note Date/Time of Note DATE: 01/26/19 TIME: 11:43 Discharge Summary Admission/Discharge Info Admit Date/Time Jan 23, 2019 at 09:24 Discharge Date/Time 01/26/19 Discharge Diagnosis Right total shoulder replacement Patient Condition: Fair Consults orthopedics Procedures right total shoulder replacement Hx of Present Illness Patient with arthritis comes in for surgery replacement of right shoulder. Hospital Course Patient with arthritis comes in for surgery replacement of right shoulder. Patient underwent right total shoulder replacement on January 23, 2019 for advanced arthritis of her right shoulder. The patient progressed slowly with pain c ontrol. She continues to complain of multiple joint pains, stiffness of her hands. She is able to ambulate with physical therapy. She is cleared for discharge home with continued physical therapy at home. She will need a rheumatology consult in the near future -Right shoulder degenerative joint disease, status post right total shoulder replacement by Dr. Castro. -Hypertension -Hyperlipidemia -Diabetes -COPD -Osteoarthritis -Psoriasis Home Meds Reported Medications Metformin* (Glucophage*) 1,000 Mg Tablet, 1000 MG PO BID, #60 TAB 01/24/19 Insulin Glargine* (Lantus*) 100 Unit/Ml Soln, 1 UNIT SC DAILY, #1 VIAL 01/24/19 Pregabalin* (Lyrica*) 50 Mg Capsule, 50 MG PO TID, CAP 01/23/19 Gabapentin* (Gabapentin*) 300 Mg Capsule, 300 MG PO TID, #90 CAP 01/23/19 Meloxicam (Mobic) 7.5 Mg Tablet, 7.5 MG PO DAILY, #30 TAB 01/23/19 Bumetanide* (Bumetanide*) 0.5 Mg Tablet, 0.5 MG PO DAILY, TAB 01/23/19 Oxybutynin Chloride* (Ditropan* XL) 5 Mg Tabsr, 5 MG PO DAILY, TAB.SA 01/23/19 Fluticasone Propionate (Flonase Allergy Relief) 9.9 Ml [place].susp, 1 SPRAY NASAL BID, #1 BOTTLE TO EACH NOSTRIL 01/23/19 Diclofenac Sodium* (Voltaren* Gel) 1% -100 Gm Gel, 2 GM TOP QID, #1 TUB 01/23/19 Calcipotriene* (Calcipotriene*) 0.005%-60 Gm Oint...g., 1 APPLIC TOP BID, TUB 01/23/19 Aspirin* (Aspirin* Chew) 81 Mg Tab.chew, 81 MG PO DAILY, TAB.CHEW 01/23/19 Discontinued Reported Medications Insulin Glargine* (Lantus*) 100 Unit/Ml Soln, 1 UNIT SC DAILY, #1 VIAL 01/24/19 Oxybutynin Chloride* (Ditropan* XL) 5 Mg Tabsr, 5 MG PO DAILY, TAB.SA 01/23/19 Follow-up Plan 2 weeks Primary Care Provider Not On Staff Doctor Pending Labs Laboratory Tests Test 01/25/19 12:47 01/25/19 18:00 01/25/19 20:39 01/26/19 01:45 Bedside 273 274 331 168 Glucose mg/dL (70-220) mg/dL (70-220) mg/dL (70-220) mg/dL (70-220) Test 01/26/19 04:25 01/26/19 06:56 01/26/19 08:35 White Blood 7.4 Count 10^3/ul (4.8-10 .8) Red Blood 3.44 Count 10^6/ul (4.20-5 .40) Hemoglobin 9.6 g/dl (12.0-16.0 ) Hematocrit 29.7 % (37.0-47.0) Mean 86.3 Corpuscular fl (82.0-101.0) Volume Mean 27.9 Corpuscular pg (29.0-33.0) Hemoglobin Mean 32.3 Corpuscular g/dl (32.0-37.0 Hemoglobin Conc ) ent Red Cell 14.6 Distribution % (11.5-14.5) Width Platelet Count 266 10^3/UL (140-41 5) Mean Platelet 10.9 Volume fl (7.4-10.4) Immature 0.500 Granulocytes % % (0.001-0.429) Neutrophils % 75.8 % (39.0-77.0) Lymphocytes % 13.6 % (15.0-51.0) Monocytes % 8.6 % (0.0-11.0) Eosinophils % 1.4 % (0.0-7.0) Basophils % 0.1 % (0.0-2.0) Nucleated Red 0.0 Blood Cells % /100WBC (0.0-0. 0) Immature 0.040 Granulocytes # 10^3/ul (0.0-0. 031) Neutrophils # 5.6 10^3/ul (1.6-7. 5) Lymphocytes # 1.0 10^3/ul (0.8-2. 9) Monocytes # 0.6 10^3/ul (0.3-0. 9) Eosinophils # 0.1 10^3/ul (0.0-0. 5) Basophils # 0.0 10^3/ul (0.0-0. 1) Nucleated Red 0.0 Blood Cells # 10^3/ul (0.0-0. 0) Bedside 157 163 Glucose mg/dL (70-220) mg/dL (70-220) YAHAIRA KELLEY Jan 26, 2019 11:44
--- NOTE | 2019-02-06 08:02 | OPR ---
Date/Time of Note Date/Time of Note DATE: 02/06/19 TIME: 07:57 Operative Report Procedure Date: Jan 23, 2019 Preoperative Diagnosis Right shoulder osteoarthritis Postoperative Diagnosis Same Operation/Procedure Performed Right total shoulder replacement Surgeon see signature line Shower Screen Installer ROSEMARY Romero Anesthesia Type: general Estimated Blood Loss: 250 - 300 ml's Transfusion none Specimen Bone Grafts/Implants Chema shoulder, 44 glenoid, 44 x 18 humeral head and size 8 stem Tubes/Drains None Complications none Pt Condition Post Procedure: stable Disposition: PACU Indications The patient is a 74-year-old female with advanced arthritis of her right shoulder Procedure Description The patient was placed in a beachchair position. The head was stabilized on the [place] headrest. The right shoulder was prepped and draped in usual manner. An anterior incision was made. A deltopectoral approach was used. The cephalic vein was identified and retracted laterally with the deltoid. The conjoined tendon was retracted medially. The subscapularis was incised 1 cm medial to the biceps groove. A biceps tenodesis was done. The shoulder had evidence of advanced osteoarthritis and significant glenoid wear. A large effusion and synovitis were encountered. Capsular release was done to allow external rotation of the arm and the shoulder was dislocated with extension and external rotation. The humeral neck cut was made in 30 degrees of retroversion. The intramedullary canal of the humerus was then prepared for a Chema component. Size 44 mm glenoid was then chosen to be placed in the glenoid. Glenoid reaming was done to improve the orientation of the glenoid. There was significant anterior wear and a tendency for anterior dislocation. The glenoid component was placed with cement. After this trials were inserted and the shoulder had good range of motion with mild anterior laxity. Slightly increased retroversion was used to improve stability. Once a stable shoulder was obtained, trials were removed the shoulder was thoroughly irrigated and injected with Marcaine and pain cocktail. The final stem and humeral head were placed and the shoulder thoroughly irrigated. Wound was closed in layers using #1 strata fix for deep fascia, 2-0 Vicryl for subcutaneous tissue and 3-0 Monocryl for the skin. Patient was transferred to the recovery room in stable condition JESSY SIDDIQI Feb 06, 2019 08:02
== END 2019-01-26 14:15 | disposition home or self-care (01) | DRG 483 ==
LOC: EDSTATUS 08:30 → REC 01-23 09:24 → MS1 01-23 18:20
PROVIDERS: ADMIT Orthopaedic Surgery; ATTEND Orthopaedic Surgery
PROC: 0RRJ0JZ Replacement of Right Shoulder Joint with Synthetic Substitute, Open Approach (ICD-10-PCS; principal; 2019-01-23 11:30)
DX: M19.011 Primary osteoarthritis, right shoulder (principal); I10 Essential (primary) hypertension; E78.5 Hyperlipidemia, unspecified; E11.9 Type 2 diabetes mellitus without complications; J44.9 Chronic obstructive pulmonary disease, unspecified; Z72.0 Tobacco use
CPT/HCPCS: 71045; 80048; 82962; 85014; 85018; 85025; 86850; 86900; 86901; 87081; 88304; 88311; 93971; 97161; 97165; C1776; J0131; J0171; J0360; J0690; J0735; J1100; J1170; J1815; J1885; J2250; J2405; J2710; J2795; J3010; J7030; J7120